=== PATIENT | male | born 1960 | race Caucasian/White ===

== ENCOUNTER 2019-10-11 22:06 | Inpatient (IN) | payer MEDICAID, OTHER ==
[~2019-10-11] VITALS: Ht 172.7 cm; Wt 81.6 kg
[~2019-10-11 22:06] MED LIST: LEVO500T2 PO; MESA400C PO; METR250T PO
[2019-10-11] MEDS ORDERED: ONDANSETRON HCL 4MG/2ML INJ IV STA (22:18)
[2019-10-11] MEDS ORDERED: PIPERACILLIN/TAZ 3.375G PREMIX 50 ML IV ONE (22:30)
[2019-10-11] MEDS ORDERED: VANCOMYCIN 1 G PREMIX 200 ML IV ONE (22:30)
[2019-10-11] MEDS ORDERED: SODIUM CHLORIDE 0.9% 1000ML BAG (SEPSIS BOLUS) IV ONE (22:30)
[2019-10-11 23:16] LABS: BASOPHILS % 0.7 % (0.0-2.0); EOSINOPHILS % 2.9 % (0.0-5.0); HEMATOCRIT. 40.5 % (42.0-52.0); HEMOGLOBIN. 13.9 g/dL (14.0-18.0); LYMPHOCYTES % 18.7 % (20.0-50.0); MEAN CORPUSCULAR HEMOGLOBIN 29.2 pg (28.0-32.0); MEAN CORPUSCULAR VOLUME 85.4 fL (80.0-94.0); MEAN PLATELET VOLUME 8.9 fl (7.4-10.4); MONOCYTES % 1.1 % (2.0-8.0); NEUTROPHILS % 76.6 % (40.0-76.0); PLATELET 148 x1000/uL (130-400); RED BLOOD CELL COUNT 4.75 mill/uL (4.7-6.1); RED CELL DISTRIBUTION WIDTH 13.7 % (11.6-14.6)
[2019-10-11 23:21] LABS: CHLORIDE 106 mEq/L (98-107)
[2019-10-11 23:23] LABS: INR 1.2; PROTHROMBIN TIME 12.5 sec (9.6-11.0)
[2019-10-12] MEDS ORDERED: ACETAMINOPHEN 650MG/20.3ML UDC PO ONE (00:30)
[2019-10-12 03:05] LABS: CLARITY URINE TURBID (CLEAR); COLOR URINE RED (YELLOW); KETONES URINE NEGATIVE (NEGATIVE); LEUKOCYTE ESTERASE URINE 3+ (NEGATIVE); NITRITE URINE POSITIVE (NEGATIVE); OCCULT BLOOD URINE 1+ (NEGATIVE); PROTEIN URINE 1+ (NEGATIVE); SPECIFIC GRAVITY URINE 1.028 (1.005-1.030); UROBILINOGEN URINE 0.2 E.U./dL (0.2-1.0)
[2019-10-12] MEDS ORDERED: WARF1TAB46 MT (07:47)
[2019-10-12] MEDS ORDERED: ONDANSETRON HCL 4MG/2ML INJ IV PRN (09:45)
[2019-10-12] MEDS ORDERED: NA PHOS,M-B/NA PHOS,DI-BA ENEMA 118ML PR PRN (09:45)
[2019-10-12] MEDS ORDERED: DOCUSATE SODIUM 100MG CAPSULE PO PRN (09:45)
[2019-10-12] MEDS ORDERED: ZOLPIDEM TARTRATE 5MG TABLET PO PRN (09:45)
[2019-10-12] MEDS ORDERED: GUAIFENESIN 200MG/10ML SUGAR FREE UDC PO PRN (09:45)
[2019-10-12] MEDS ORDERED: KETOROLAC 15MG/ML VIAL IV PRN (09:45)
[2019-10-12] MEDS ORDERED: MAGNESIUM/ALUMINUM HYDROXIDE/SIMETHICONE 30ML UDC PO PRN (09:45)
[2019-10-12] MEDS ORDERED: ACETAMINOPHEN 325MG TABLET PO PRN (09:45)
[2019-10-12] MEDS ORDERED: CLONIDINE 0.1MG TABLET PO PRN (09:45)
[2019-10-12] MEDS ORDERED: NITROGLYCERIN 0.4MG TABLET SL SL PRN (09:45)
[2019-10-12] MEDS ORDERED: CEFTRIAXONE 1 G PREMIX 50 ML IV SCH (10:00)
[2019-10-12] MEDS ORDERED: MIDO10TA MT (10:19)
[2019-10-12] MEDS: SODIUM CHLORIDE 0.9% 1,000 ML IV SCH ×2 (10:39→16:15)
[2019-10-12] MEDS: FAMOTIDINE 20MG TABLET PO SCH ×2 (10:40→20:14)
[2019-10-12] MEDS: ENOXAPARIN 40MG/0.4ML SYR SUBCUT SCH (10:40)
[2019-10-12] MEDS: ASCORBIC ACID 500 MG TABLET PO SCH ×2 (10:40→20:14)
[2019-10-12] MEDS ORDERED: LEVOFLOXACIN 500MG PREMIX 100 ML IV SCH (11:00)
[2019-10-12 16:24] VITALS: BP_SYST 119; BP_SYST 131; BP_DIAS 66; BP_DIAS 79
[2019-10-12 16:34] VITALS: BP 131/79
[2019-10-12 19:57] LABS: CREATINE KINASE MB FRACTION 1.1 ng/mL (0.5-3.6)
[2019-10-12 20:00] VITALS: BP 130/79
[2019-10-12 23:37] LABS: *AMPHETAMINES SCREEN URINE NEGATIVE (NEGATIVE); *BARBITURATES SCREEN URINE NEGATIVE (NEGATIVE); *BENZODIAZEPINES SCREEN URINE NEGATIVE (NEGATIVE); *COCAINE SCREEN URINE NEGATIVE (NEGATIVE); METHADONE URINE SCREEN NEGATIVE (NEGATIVE); OPIATES URINE SCREEN PRESUMTIVE POSITIVE (NEGATIVE)
[2019-10-12 23:38] LABS: CANNABINOID URINE SCREEN NEGATIVE (NEGATIVE); PHENCYCLIDINE URINE SCREEN NEGATIVE (NEGATIVE)
[2019-10-13] VITALS: BP 103/61
[2019-10-13 00:23] LABS: CREATINE KINASE 409 IU/L (39-308)
[2019-10-13 00:24] LABS: CREATINE KINASE MB FRACTION < 1.0 ng/mL (0.5-3.6)
[2019-10-13] MEDS: ACETAMINOPHEN 325MG TABLET PO PRN ×2 (02:04→14:55)
[2019-10-13] MEDS: SODIUM CHLORIDE 0.9% 1,000 ML IV SCH ×2 (02:13→14:50)
[2019-10-13 04:00] VITALS: BP 113/67
[2019-10-13 08:21] VITALS: BP 121/53
[2019-10-13] MEDS: FAMOTIDINE 20MG TABLET PO SCH ×2 (08:28→21:22)
[2019-10-13] MEDS: CEFTRIAXONE 1,000 MG in DEXTROSE 5% WATER 50 ML IV SCH (08:30)
[2019-10-13] MEDS: ZINC SULFATE 220 MG ( 50 ) CAPSULE PO SCH (08:30)
[2019-10-13] MEDS: ENOXAPARIN 40MG/0.4ML SYR SUBCUT SCH (08:30)
[2019-10-13] MEDS: ASCORBIC ACID 500 MG TABLET PO SCH ×2 (08:30→21:22)
[2019-10-13] MEDS ORDERED: LEVOFLOXACIN 500MG PREMIX 100 ML IV SCH (10:00)
[2019-10-13 12:17] VITALS: BP 129/64
[2019-10-13 16:06] VITALS: BP 127/66
[2019-10-13] MEDS ORDERED: GENTAMICIN 120MG PREMIX 100 ML IV NR (16:30)
[2019-10-13 20:00] VITALS: BP 133/83
[2019-10-14] VITALS: BP 139/85
[2019-10-14] MEDS: SODIUM CHLORIDE 0.9% 1,000 ML IV SCH ×3 (03:34→20:40)
[2019-10-14 04:00] VITALS: BP 136/82
[2019-10-14] MEDS ORDERED: GENTAMICIN 100MG PREMIX 50 ML IV SCH (04:00)
[2019-10-14 06:33] LABS: BASOPHILS % 0.6 % (0.0-2.0); EOSINOPHILS % 4.1 % (0.0-5.0); HEMOGLOBIN. 13.3 g/dL (14.0-18.0); LYMPHOCYTES % 14.2 % (20.0-50.0); MEAN CORPUSCULAR HEMOGLOBIN 29.3 pg (28.0-32.0); MONOCYTES % 6.4 % (2.0-8.0); NEUTROPHILS % 74.7 % (40.0-76.0); PLATELET 155 x1000/uL (130-400); RED BLOOD CELL COUNT 4.52 mill/uL (4.7-6.1); RED CELL DISTRIBUTION WIDTH 13.4 % (11.6-14.6)
[2019-10-14 06:41] LABS: CHLORIDE 107 mEq/L (98-107)
[2019-10-14 08:00] VITALS: BP 135/75
[2019-10-14] MEDS: CEFTRIAXONE 1,000 MG in DEXTROSE 5% WATER 50 ML IV SCH (08:32)
[2019-10-14] MEDS: FAMOTIDINE 20MG TABLET PO SCH ×2 (08:33→20:40)
[2019-10-14] MEDS: ENOXAPARIN 40MG/0.4ML SYR SUBCUT SCH (08:33)
[2019-10-14] MEDS: ZINC SULFATE 220 MG ( 50 ) CAPSULE PO SCH (08:33)
[2019-10-14] MEDS: ASCORBIC ACID 500 MG TABLET PO SCH ×2 (08:33→20:40)
[2019-10-14 11:58] VITALS: BP 118/89
[2019-10-14 16:00] VITALS: BP 147/81
[2019-10-14] MEDS ORDERED: MOME13HF2 INH (17:23)
[2019-10-14] MEDS ORDERED: ATOR20TA65 PO (17:23)
[2019-10-14] MEDS ORDERED: HYDR12.54 PO (17:23)
[2019-10-14] MEDS ORDERED: LISI10TA5 PO (17:23)
[2019-10-14] MEDS ORDERED: ALBU6.7H9 INH (17:23)
[2019-10-14 20:00] VITALS: BP 119/71
[2019-10-14] MEDS: GENTAMICIN 120MG PREMIX 100 ML IV SCH (20:39)
[2019-10-15] VITALS: BP 115/66
[2019-10-15 04:00] VITALS: BP 134/81
[2019-10-15] MEDS: SODIUM CHLORIDE 0.9% 1,000 ML IV SCH ×2 (06:52→17:10)
[2019-10-15 07:03] LABS: CHLORIDE 109 mEq/L (98-107)
[2019-10-15 07:16] LABS: GENTAMICIN RANDOM 0.7 ug/mL
[2019-10-15 08:00] VITALS: BP 146/82
[2019-10-15] MEDS: CEFTRIAXONE 1,000 MG in DEXTROSE 5% WATER 50 ML IV SCH (08:18)
[2019-10-15] MEDS: GENTAMICIN 120MG PREMIX 100 ML IV SCH ×2 (08:19→17:10)
[2019-10-15] MEDS: ZINC SULFATE 220 MG ( 50 ) CAPSULE PO SCH (09:44)
[2019-10-15] MEDS: ASCORBIC ACID 500 MG TABLET PO SCH ×2 (09:44→20:52)
[2019-10-15] MEDS: ENOXAPARIN 40MG/0.4ML SYR SUBCUT SCH (09:44)
[2019-10-15] MEDS: FAMOTIDINE 20MG TABLET PO SCH ×2 (09:44→20:52)
[2019-10-15 12:00] VITALS: BP 131/74
[2019-10-15 15:54] VITALS: BP 124/78
[2019-10-15 20:00] VITALS: BP 123/76
[2019-10-16] VITALS: BP 129/71
[2019-10-16] MEDS: SODIUM CHLORIDE 0.9% 1,000 ML IV SCH ×2 (02:43→14:25)
[2019-10-16] MEDS: GENTAMICIN 120MG PREMIX 100 ML IV SCH ×3 (02:43→17:55)
[2019-10-16 04:00] VITALS: BP 138/81
[2019-10-16 07:27] LABS: CHLORIDE 109 mEq/L (98-107)
[2019-10-16 08:00] VITALS: BP 144/88
[2019-10-16] MEDS: FAMOTIDINE 20MG TABLET PO SCH ×2 (10:18→20:59)
[2019-10-16] MEDS: ASCORBIC ACID 500 MG TABLET PO SCH ×2 (10:18→20:59)
[2019-10-16] MEDS: ENOXAPARIN 40MG/0.4ML SYR SUBCUT SCH (10:18)
[2019-10-16] MEDS: ZINC SULFATE 220 MG ( 50 ) CAPSULE PO SCH (10:18)
[2019-10-16] MEDS ORDERED: LIDOCAINE HCL 1% 20ML VIAL (Pyxis) INJ ONE (11:21)
[2019-10-16] MEDS ORDERED: SODIUM BICARBONATE 4% (2.4MEQ) 5ML VIAL IV ONE (11:21)
[2019-10-16 12:00] VITALS: BP 158/89
[2019-10-16 16:00] VITALS: BP 124/71
[2019-10-16 20:00] VITALS: BP 132/78
[2019-10-17] VITALS: BP 128/76
[2019-10-17] MEDS: GENTAMICIN 120MG PREMIX 100 ML IV SCH ×2 (01:01→10:36)
[2019-10-17 04:00] VITALS: BP 121/58
[2019-10-17] MEDS: SODIUM CHLORIDE 0.9% 1,000 ML IV SCH ×3 (05:12→19:45)
[2019-10-17 05:58] LABS: CHLORIDE 108 mEq/L (98-107)
[2019-10-17 08:00] VITALS: BP 137/80
[2019-10-17] MEDS: ASCORBIC ACID 500 MG TABLET PO SCH ×2 (08:59→21:22)
[2019-10-17] MEDS: ENOXAPARIN 40MG/0.4ML SYR SUBCUT SCH (08:59)
[2019-10-17] MEDS: ZINC SULFATE 220 MG ( 50 ) CAPSULE PO SCH (08:59)
[2019-10-17] MEDS: FAMOTIDINE 20MG TABLET PO SCH ×2 (08:59→21:21)
[2019-10-17 12:00] VITALS: BP 122/74
[2019-10-17 16:00] VITALS: BP 138/83
[2019-10-17 20:00] VITALS: BP 126/73
[2019-10-17] MEDS: GENTAMICIN SULFATE 180 MG in SODIUM CHLORIDE 0.9% 100 ML IV SCH (22:05)
[2019-10-18] VITALS: BP 130/82
[2019-10-18 04:00] VITALS: BP 109/60
[2019-10-18] MEDS: SODIUM CHLORIDE 0.9% 1,000 ML IV SCH ×2 (07:22→22:54)
[2019-10-18 08:00] VITALS: BP 129/78
[2019-10-18] MEDS: FAMOTIDINE 20MG TABLET PO SCH ×2 (09:01→22:53)
[2019-10-18] MEDS: ASCORBIC ACID 500 MG TABLET PO SCH ×2 (09:01→22:53)
[2019-10-18] MEDS: ENOXAPARIN 40MG/0.4ML SYR SUBCUT SCH (09:01)
[2019-10-18] MEDS: ZINC SULFATE 220 MG ( 50 ) CAPSULE PO SCH (09:01)
[2019-10-18 12:00] VITALS: BP 111/77
[2019-10-18] MEDS: GENTAMICIN SULFATE 180 MG in SODIUM CHLORIDE 0.9% 100 ML IV SCH (13:46)
[2019-10-18 16:00] VITALS: BP 136/83
[2019-10-18 20:00] VITALS: BP 144/85
[2019-10-19] VITALS (7 sets, daily range): BP systolic 102–129; BP diastolic 57–79
[2019-10-19 04:22] LABS: CHLORIDE 108 mEq/L (98-107)
[2019-10-19 04:31] LABS: GENTAMICIN RANDOM 3.3 ug/mL
[2019-10-19] MEDS: GENTAMICIN SULFATE 180 MG in SODIUM CHLORIDE 0.9% 100 ML IV SCH ×2 (05:35→10:41)
[2019-10-19] MEDS: SODIUM CHLORIDE 0.9% 1,000 ML IV SCH ×3 (05:36→20:39)
[2019-10-19] MEDS: FAMOTIDINE 20MG TABLET PO SCH ×2 (08:10→20:38)
[2019-10-19] MEDS: ENOXAPARIN 40MG/0.4ML SYR SUBCUT SCH (08:10)
[2019-10-19] MEDS: ASCORBIC ACID 500 MG TABLET PO SCH ×2 (08:10→20:38)
[2019-10-19] MEDS: ZINC SULFATE 220 MG ( 50 ) CAPSULE PO SCH (08:10)
[2019-10-20] VITALS: BP 124/70
[2019-10-20 04:00] VITALS: BP 120/61
[2019-10-20] MEDS ORDERED: GENTAMICIN SULFATE 180 MG in SODIUM CHLORIDE 0.9% 100 ML IV SCH (06:00)
[2019-10-20] MEDS: SODIUM CHLORIDE 0.9% 1,000 ML IV SCH (07:25)
[2019-10-20 08:00] VITALS: BP 133/76
[2019-10-20] MEDS: FAMOTIDINE 20MG TABLET PO SCH (08:27)
[2019-10-20] MEDS: ASCORBIC ACID 500 MG TABLET PO SCH (08:27)
[2019-10-20] MEDS: ZINC SULFATE 220 MG ( 50 ) CAPSULE PO SCH (08:27)
[2019-10-20] MEDS: ENOXAPARIN 40MG/0.4ML SYR SUBCUT SCH (08:28)
[2019-10-20 11:19] VITALS: BP 133/76
== END 2019-10-20 12:30 | disposition home or self-care (01) | DRG 720 ==
LOC: ER 22:06 → 7WST 10-12 06:48 → EDBEDREQTM 10-12 07:05 → EDBEDREQ 10-12 07:05 → EDBEDREQSVC 10-12 07:06 → EDBEDREQ 10-12 07:06 → ENRESERV 10-12 11:53 → 5WST 10-13 18:23
PROVIDERS: ADMIT Internal Medicine; ATTEND Internal Medicine
PROC: 02HV33Z Insertion of Infusion Device into Superior Vena Cava, Percutaneous Approach (ICD-10-PCS; principal; 2019-10-16)
PROC: B548ZZA Ultrasonography of Superior Vena Cava, Guidance (ICD-10-PCS; 2019-10-16)
DX: A41.51 Sepsis due to Escherichia coli [E. coli] (principal); N39.0 Urinary tract infection, site not specified; D63.8 Anemia in other chronic diseases classified elsewhere; J45.909 Unspecified asthma, uncomplicated; N41.9 Inflammatory disease of prostate, unspecified; R17 Unspecified jaundice; Z20.828 Contact with and (suspected) exposure to other viral communicable diseases; E78.5 Hyperlipidemia, unspecified; I10 Essential (primary) hypertension; Z90.49 Acquired absence of other specified parts of digestive tract; Z79.2 Long term (current) use of antibiotics; Z79.899 Other long term (current) drug therapy; E83.51 Hypocalcemia
CPT/HCPCS: 36415; 36573; 71045; 74021; 74176; 76937; 80048; 80053; 80170; 80305; 81003; 82550; 82553; 83036; 83605; 83880; 84145; 84484; 85025; 87077; 87186; 87635; 93005; 93970; 99291; C1725; J0696; J1580; J1650; J1885; J1956; J2405; J2543; J3370; J3490; J7030; J7050; J7060